=== PATIENT | female | born 1930 | race African-American/Black ===

== ENCOUNTER 2019-10-17 12:08 | Emergency (ER) | payer OTHER ==
[~2019-10-17] VITALS: Ht 152.4 cm; Wt 49.0 kg
[2019-10-17] MEDS ORDERED: INDERAL LA80 MG (12:14)
[2019-10-17] MEDS ORDERED: XARELTO15 MG (12:14)
[2019-10-17] MEDS ORDERED: LANOXIN125 MCG (12:14)
[2019-10-17] MEDS ORDERED: COZAAR25 MG (12:14)
== END 2019-10-17 17:40 | disposition home or self-care (01) ==
LOC: ER 12:08
DX: K57.90 Diverticulosis of intestine, part unspecified, without perforation or abscess without bleeding (principal); K59.09 Other constipation